=== PATIENT | male | born 1985 | race Caucasian/White ===

== ENCOUNTER 2021-05-01 07:52 | Emergency (ER) | payer SELFPAY ==
[2021-05-01 07:58] VITALS: BP 149/94; PULSE 81; RESP 16; TEMP 36.4; O2SAT 100; BMI 28.0
--- NOTE | 2021-05-01 08:01 | XR_ITS ---
WS: [id number] Exam: XR shoulder RT min 2V* [id number] Date/Time of Exam: 05/01/2021 8:08 AM Reason For Exam: trauma The projections of the shoulder reveal no fractures, anomalies, soft tissue swelling, or calcificatio ns. There is normal bony alignment. No irregularity of the bony architecture is noted. XR/XR shoulder RT min 2V* [id number] IMPRESSION: Negative right shoulder.
--- NOTE | 2021-05-01 08:01 | XR_ITS ---
WS: [id number] Exam: [place] [id number] Date/Time of Exam: 05/01/2021 8:08 AM Reason For Exam: trauma Findings: There are no fractures or bone anomalies. The bony elements are in adequate alignment. There are no soft tissue calcifications or infiltration. The joint spaces are smooth and intact. XR/[place] [id number] IMPRESSION: Negative right humerus.
--- NOTE | 2021-05-01 08:01 | XR_ITS ---
WS: [id number] Exam: [place] [id number] Date/Time of Exam: 05/01/2021 8:08 AM Reason For Exam: trauma No fracture or dislocation. The AC joint is intact. Normal soft tissues. XR/[place] [id number] IMPRESSION: 1. Negative right clavicle.
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
[2021-05-01 08:12] VITALS: BP 149/94; PULSE 76; O2SAT 100
[2021-05-01 08:16] LABS: Basophils # 0.1 10^3/uL (0.0-0.1); Basophils % 0.7 %; Eosinophils # 0.4 10^3/uL (0.0-0.8); Eosinophils % 4.7 %; Hematocrit 46.3 % (42.0-52.0); Hemoglobin 15.8 g/dL (11.7-16.6); Lymphocytes % 24.9 %; Mean Corpuscular HGB Conc 34.1 g/dL (30.0-36.0); Mean Platelet Volume 9.3 fL (7.4-10.4); Monocytes # 0.8 10^3/uL (0.2-0.9); Monocytes % 9.2 %; Neutrophils # 4.89 10^3/uL (1.8-7.7); Neutrophils % 60.3 %; Nucleated Red Blood Cells % 0 %; Platelet Count 251 10^3/cmm (130-400); Red Blood Count 5.09 10^6/uL (4.1-5.3); Red Cell Distribution Width 11.4 % (12.1-15.1); White Blood Count 8.1 10^3/uL (4.0-10.0)
--- NOTE | 2021-05-01 08:19 | PC.NURSE ---
approved switching ketorolac to IM. IVP ketorolac not given.
[2021-05-01] MEDS: ketorolac 60 mg/2 mL INJ IM (08:45)
[2021-05-01 08:47] LABS: Alanine Aminotransferase 17 U/L (0-41); Alkaline Phosphatase 85 IU/L (40-130); Anion Gap 12.9 (5-19); Aspartate Amino Transferase 19 U/L (0-40); Blood Urea Nitrogen 13 mg/dL (6-20); Calcium 8.6 mg/dL (8.5-10.5); Carbon Dioxide 23 mmol/L (22-29); Chloride 106 mmol/L (98-107); Globulin 2.6 g/dL (1.3-4.6); Glomerular Filtration Rate 129.1 mL/min (90-130); Glucose 81 mg/dL (65-115); Osmolality Calculated 283 mOsm/kg (285-295); Potassium 4.9 mmol/L (3.5-5.1); Sodium 137 mmol/L (136-145); Total Bilirubin 0.2 mg/dL (0.15-1.2); Total Protein 6.6 g/dL (6.6-8.7)
[2021-05-01 09:38] LABS: Add Urine Microscopic? YES; Bilirubin Urine Neg (Negative); Blood Urine Trace (Negative); Glucose Urine UA Norm (Normal); Ketones Urine Negative (Negative); Leukocyte Esterase Urine Negative (Negative); Nitrate Urine Negative (Negative); Protein Urine Neg (Negative); Urine Appearance Clear (CLEAR); Urine Color Yellow (Yellow); Urobilinogen Urine Norm (Negative); pH Urine 5 (5-7)
[2021-05-01 09:43] LABS: Add Urine Culture? No; RBC Urine 0-4 /hpf (0-2)
--- NOTE | 2021-05-01 14:41 | DCPLANNER ---
relationship manager had message to schedule a follow up appointment for patient with ortho. relationship manager called the ortho clinic, spoke with Caitie, gave clinic patients information. relationship manager was told that patients information would be printed and reviewed. Clinic will call patient with appointment information.
--- NOTE | 2021-05-04 10:57 | DCPLANNER ---
Patient has a follow up appointment scheduled for Sunday, May 09, 2021 at 3:[address] Wilkes at [facility]. Clinic will call patient with appointment information.
--- NOTE | 2021-06-15 07:13 | DCPLANNER ---
Patient had a follow up appointment scheduled with ortho - patient did not attend appointment.
== END 2021-05-01 10:15 | disposition home or self-care (01) ==
PROVIDERS: Emergency Provider Family Medicine
DX: S09.8XXA Other specified injuries of head, initial encounter (principal); M25.511 Pain in right shoulder; V86.99XA Unspecified occupant of other special all-terrain or other off-road motor vehicle injured in nontraffic accident, initial encounter
CPT/HCPCS: 70450; 72040; 73000; 73030; 73060; 80053; 81001; 85025; 96372; 99283; J1885

== ENCOUNTER 2021-08-18 06:00 | Outpatient (RCR) | payer OTHER, SELFPAY | END 2021-09-17 23:59 | disposition home or self-care (01) | LOC: WPT 06:00 | PROVIDERS: Referring Provider Orthopaedic Surgery; Visit Provider Orthopaedic Surgery | DX: M25.511 Pain in right shoulder (principal) | CPT/HCPCS: 97110; 97140; 97161; 97530 ==